=== PATIENT | male | born 1975 | race Caucasian/White ===

== ENCOUNTER 2024-10-09 11:48 | Inpatient (IN) | payer SELFPAY ==
[2024-10-09 12:08] VITALS: BP 153/94; PULSE 60; TEMP 36.5; O2SAT 98
--- NOTE | 2024-10-09 12:41 | PC.NURSE ---
96 hour hold rights read and reviewed with patient. Patient stated I do not need to be here, I will sign whatever paper you need me too but i want to go home. I went to [facility] to get some help for depression not to be placed on a hold. I will never seek help again. This nurse explained the 96 hour hold process to patient. Sulaiman from security present during reading of rights. Patient verbalized understandings and copy of rights given to patient.
--- NOTE | 2024-10-09 12:43 | ECG_ITS ---
[employer] Test Date: 2024-10-09 Pat Name: Shubham Summers Department: Room: Gender: Male [employer] Office Markup Clerk: : [id number] Requested By: Maura Neal Order Number: [id number] Miranda MD: Meera Tirado M.D. Measurements Intervals [place] Rate: 57 P: 17 OR: 174 QRS: -39 QRSD: 178 T: 12 QT: 461 QTc: 452 Interpretive Statements SINUS BRADYCARDIA POSSIBLE LEFT ATRIAL ENLARGEMENT [-0.1mV P-WAVE IN V1/V2] INDETERMINATE AXIS RIGHT BUNDLE BRANCH BLOCK [120+ ms QRS DURATION, UPRIGHT V1, 40+ ms S IN I/aVL/V4/V5/V6] No previous ECG available for comparison Electronically Signed On 10-09-2024 21:19:59 CDT by Meera Tirado M.D. [email or web address]
[2024-10-09 12:51] VITALS: PULSE 57; RESP 18
[2024-10-09 12:57] LABS: Basophils # 0.1 10^3/uL (0.0-0.1); Basophils % 0.8 %; Eosinophils # 0.1 10^3/uL (0.0-0.8); Eosinophils % 1.8 %; Hematocrit 49.4 % (37-53); Lymphocytes # 1.8 10^3/uL (0.8-4.8); Lymphocytes % 28.9 %; Mean Corpuscular Hemoglobin 27.9 pg (27-33); Mean Corpuscular Volume 84.6 fl (82-101); Mean Platelet Volume 10.7 fL (7.4-10.4); Monocytes # 0.4 10^3/uL (0.2-0.9); Monocytes % 6.9 %; Neutrophils # 3.79 10^3/uL (1.8-7.7); Neutrophils % 61.3 %; Nucleated Red Blood Cells % 0 %; Platelet Count 233 10^3/cmm (157-399); Red Blood Count 5.84 10^6/uL (3.85-5.65); Red Cell Distribution Width 13.7 % (12.1-15.1); White Blood Count 6.19 10^3/uL (3.29-11.43)
--- NOTE | 2024-10-09 13:00 | W.ED.PSYCHS ---
HPI - Psych General: Chief Complaint: Psychiatric Symptoms Stated Complaint: DINORAH, 96 Time Seen by Provider: 10/09/24 11:59 History of Present Illness: 49-year-old man who presents the emergency room with police from [facility] with concerns for suicidal thoughts. He has not been on medications and has never sought help before. He says he is been having worsening depression which in turn has had him thinking more about suicide. He says he does not have a plan and is not going to kill himself but he was sent here with an affidavit for a 96-hour hold. He was told he would see a psychiatrist in the emergency room. [facility]. However psychiatrist on-call had not been notified and he recommends the patient be placed into the Neuropsych Unit where he can be evaluated appropriately and possibly started on medications for home and also have follow-up. Related Data Home Medications ?Medication ?Instructions ?Recorded ?Confirmed No Known Home Medications 10/09/24 10/09/24 Review of Systems Narrative: Constitutional symptoms: Negative except as documented in HPI. Skin symptoms: Negative except as documented in HPI. Eye symptoms: Negative except as documented in HPI. ENMT symptoms: Negative except as documented in HPI. Respiratory symptoms: Negative except as documented in HPI. Cardiovascular symptoms: Negative except as documented in HPI. Gastrointestinal symptoms: Negative except as documented in HPI. Genitourinary symptoms: Negative except as documented in HPI. Musculoskeletal symptoms: Negative except as documented in HPI. Neurologic symptoms: Negative except as documented in HPI. Psychiatric symptoms: Negative except as documented in HPI. Endocrine symptoms: Negative except as documented in HPI. Physical Exam Narrative: EXAM NARRATIVE: General: Alert, no acute distress. Skin: Warm, dry. Head: Normocephalic, atraumatic. Neck: Supple, trachea midline. Eye: Extraocular movements are intact. Ears, nose, mouth and throat: mucosa moist. Cardiovascular: Regular, Normal peripheral perfusion. Respiratory: Lungs are clear to auscultation, respirations are non-labored, breath sounds are equal, Symmetrical chest wall expansion. Gastrointestinal: Soft, Nontender, Non distended Musculoskeletal: Normal ROM, no deformity. Neurological: Alert and oriented, No focal neurological deficit observed. Psychiatric: Patient is quite irritated and agitated about the fact that he was told that he was coming here to be evaluated by a psychiatrist and is adamant that he will not be admitted to the Neuropsych Unit. I discussed with him that I do not really have any choice at this point and that likely he will be seen tomorrow and could possibly be sent home after he is evaluated by the psychiatrist but the psychiatrist does not routinely come to the emergency room for evaluations. Ultimately he expresses some understanding of this. Course Vital Signs: Vital signs: Vital Signs Temperature 97.7 F 10/09/24 12:08 Pulse Rate 57 L 10/09/24 12:51 Respiratory Rate 18 10/09/24 12:51 Blood Pressure 153/94 10/09/24 12:08 Pulse Oximetry 98 10/09/24 12:08 Oxygen Delivery Me thod Room Air 10/09/24 12:08 MDM - Psych Medical Decision Making Differential diagnosis: Patient with reported depression and suicidal ideation. concerns for infection, alcohol intoxication, cardiac issues or other medical problems prior to psychiatric admission. Workup: labwork, ekg ordered to evaluate the pathologies and to clear the patient medically prior to psychiatric admission Lab Review: Laboratory results were reviewed and interpreted by myself the emergency room physician. - Medically cleared. - EKG shows no ischemic changes. - Blood alcohol level is negative, -Tylenol and salicylate levels are negative. - Drug screen is negative - No signs of infection, urinalysis clear and white count is not elevated - No anemia. - BUN and creatinine are within normal limits. Consultation: I spoke with Dr. Trinidad who recommends 96-hour hold and placement. Assessment and plan: Depression Suicidal thoughts ?96-hour hold was placed. Behavioral health felt he pose a danger to himself. -Admission to neuropsychiatric unit for continued evaluation and treatment. - All lab work was reviewed and interpreted personally by myself, the ER physician - Evaluation and treatment of this problem were appropriate in the emergency setting Lab Data 10/09/24 12:47 10/09/24 12:47 Laboratory Results WBC 6.19 10^3/uL (3.29-11.43) 10/09/24 12:47 RBC 5.84 10^6/uL (3.85-5.65) H 10/09/24 12:47 Hgb 16.30 g/dL (11.27-16.99) 10/09/24 12:47 Hct 49.4 % (37-53) 10/09/24 12:47 MCV 84.6 fl (82-101) 10/09/24 12:47 MCH 27.9 pg (27-33) 10/09/24 12:47 MCHC 33.0 g/dL (30-55) 10/09/24 12:47 RDW 13.7 % (12.1-15.1) 10/09/24 12:47 Plt Count 233 10^3/cmm (157-399) 10/09/24 12:47 MPV 10.7 fL (7.4-10.4) H 10/09/24 12:47 Neut % (Auto) 61.3 % 10/09/24 12:47 Lymph % (Auto) 28.9 % 10/09/24 12:47 [place] % (Auto) 6.9 % 10/09/24 12:47 Eos % (Auto) 1.8 % 10/09/24 12:47 Baso % (Auto) 0.8 % 10/09/24 12:47 Neut # (Auto) 3.79 10^3/uL (1.8-7.7) 10/09/24 12:47 Lymph # (Auto) 1.8 10^3/uL (0.8-4.8) 10/09/24 12:47 [place] # (Auto) 0.4 10^3/uL (0.2-0.9) 10/09/24 12:47 Eos # (Auto) 0.1 10^3/uL (0.0-0.8) 10/09/24 12:47 Baso # (Auto) 0.1 10^3/uL (0.0-0.1) 10/09/24 12:47 Nucleated RBC % (auto) 0 % 10/09/24 12:47 Nucleated RBCs # 0.0 /100WBC 10/09/24 12:47 Sodium 135 mmol/L (136-145) L 10/09/24 12:47 Potassium 3.5 mmol/L (3.5-5.1) 10/09/24 12:47 Chloride 98 mmol/L (98-107) 10/09/24 12:47 Carbon Dioxide 23 mmol/L (22-29) 10/09/24 12:47 Anion Gap 17.5 (5-19) 10/09/24 12:47 BUN 15 mg/dL (6-20) 10/09/24 12:47 Creatinine 0.8 mg/dL (0.7-1.2) 10/09/24 12:47 GFR Calculation 103.2 mL/min (90-130) 10/09/24 12:47 Glucose 98 mg/dL (65-115) 10/09/24 12:47 Calculated Osmolality 281 mOsm/kg (285-295) L 10/09/24 12:47 Calcium 9.1 mg/dL (8.5-10.5) 10/09/24 12:47 Total Bilirubin 0.6 mg/dL (0.15-1.2) 10/09/24 12:47 AST 31 U/L (0-40) 10/09/24 12:47 ALT 28 U/L (0-41) 10/09/24 12:47 Alkaline Phosphatase 80 U/L (40-130) 10/09/24 12:47 Total Protein 8.0 g/dL (6.6-8.7) 10/09/24 12:47 Albumin 4.7 g/dL (3.5-5.2) 10/09/24 12:47 Globulin 3.3 g/dL (1.3-4.6) 10/09/24 12:47 TSH 1.99 uIU/mL (0.27-4.20) 10/09/24 12:47 Urine Color Yellow (Yellow) 10/09/24 12:37 Urine Appearance Clear (CLEAR) 10/09/24 12:37 Urine pH 6.5 (5-7) 10/09/24 12:37 Ur Specific Funk 1.024 (1.005-1.030) 10/09/24 12:37 Urine Protein Negative (Negative) 10/09/24 12:37 Urine Glucose (UA) Negative (Normal) 10/09/24 12:37 Urine Ketones Negative (Negative) 10/09/24 12:37 Urine Blood Negative (Negative) 10/09/24 12:37 Urine Nitrate Negative (Negative) 10/09/24 12:37 Urine Bilirubin Negative (Negative) 10/09/24 12:37 Urine Urobilinogen 1.0 mg/dL (Negative) 10/09/24 12:37 Ur Leukocyte Esterase Negative (Negative) 10/09/24 12:37 Urine RBC 0-2 /hpf (0-2) 10/09/24 12:37 Urine WBC 0-5 /hpf (0-5) 10/09/24 12:37 Ur Squamous Epith Cells 0-5 /hpf (0-5) 10/09/24 12:37 Amorphous Sediment Not Reportable 10/09/24 12:37 Urine Bacteria None seen /hpf (NONE) 10/09/24 12:37 Hyaline Casts 4.52 /lpf 10/09/24 12:37 Salicylates < 0.3 mg/dL (3-10) L 10/09/24 12:47 Urine Opiates Screen Negative ng/mL (Negative) 10/09/24 12:37 Acetaminophen < 5.0 ug/mL (10-30) L 10/09/24 12:47 Ur Barbiturates Screen Negative ng/mL (Negative) 10/09/24 12:37 Ur Phencyclidine Scrn Negative ng/mL (Negative) 10/09/24 12:37 Ur Amphetamines Screen Negative ng/mL (Negative) 10/09/24 12:37 U Benzodiazepines Scrn Negative ng/mL (Negative) 10/09/24 12:37 Urine Cocaine Screen Negative ng/mL (Negative) 10/09/24 12:37 U Marijuana (THC) Screen Negative ng/mL (Negative) 10/09/24 12:37 Ethyl Alcohol < 10 mg/dL (0-10) 10/09/24 12:47 No radiology studies performed this visit Discharge Plan Discharge Patient Disposition: Admitted As Inpatient Admit Provider: Kal Trinidad Clinical Impression: Suicidal ideation, Depression Condition: Stable Coding Level of Care Code ED Environmental Services Lead for Latasha Posadas
[2024-10-09 13:04] LABS: Bilirubin Urine Negative (Negative); Blood Urine Negative (Negative); Glucose Urine UA Negative (Normal); Ketones Urine Negative (Negative); Leukocyte Esterase Urine Negative (Negative); Nitrate Urine Negative (Negative); Protein Urine Negative (Negative); Specific Gravity, Urine 1.024 (1.005-1.030); Urine Appearance Clear (CLEAR); Urine Color Yellow (Yellow); pH Urine 6.5 (5-7)
[2024-10-09 13:09] LABS: Bacteria Urine None Seen /hpf; Hyaline Casts Urine 4.52 /lpf; RBC Urine 0-2 /hpf (0-2); Squamous Epithelial Cell Urine 0-5 /hpf (0-5); WBC Urine 0-5 /hpf (0-5)
[2024-10-09 13:11] LABS: Add Urine Culture? No; Amphetamines Screen Urine Negative (Negative); Barbiturates Screen Urine Negative (Negative); Benzodiazepines Screen Urine Negative (Negative); Cocaine Screen Urine Negative (Negative); Opiate Screen Urine Negative (Negative); PCP Screen Urine Negative (Negative); THC Screen Urine Negative (Negative)
[2024-10-09 13:22] LABS: Alanine Aminotransferase 28 U/L (0-41); Albumin Level 4.7 g/dL (3.5-5.2); Alkaline Phosphatase 80 U/L (40-130); Anion Gap 17.5 (5-19); Aspartate Amino Transferase 31 U/L (0-40); Blood Urea Nitrogen 15 mg/dL (6-20); Calcium 9.1 mg/dL (8.5-10.5); Carbon Dioxide 23 mmol/L (22-29); Chloride 98 mmol/L (98-107); Globulin 3.3 g/dL (1.3-4.6); Glomerular Filtration Rate 103.2 mL/min (90-130); Glucose 98 mg/dL (65-115); Osmolality Calculated 281 mOsm/kg (285-295); Potassium 3.5 mmol/L (3.5-5.1); Sodium 135 mmol/L (136-145); Thyroid Stimulating Hormone 1.99 uIU/mL (0.27-4.20); Total Bilirubin 0.6 mg/dL (0.15-1.2)
[2024-10-09 13:27] LABS: Acetaminophen < 5.0 ug/mL (10-30); Alcohol Level < 10 mg/dL (0-10); Salicylate < 0.3 mg/dL (3-10)
--- NOTE | 2024-10-09 13:46 | PC.NURSE ---
report called to Gary @[id number], no further questions.
[2024-10-09 14:37] VITALS: BP 118/74; PULSE 82; RESP 18; TEMP 36.6; O2SAT 98
[2024-10-09 20:40] VITALS: BP 162/93; PULSE 77; RESP 18; TEMP 36.6; O2SAT 98
[2024-10-10 06:00] VITALS: BP 149/100; PULSE 78; RESP 18; TEMP 36.6; O2SAT 100
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
[2024-10-10 13:41] VITALS: BP 149/100; PULSE 78; RESP 18; TEMP 36.6; O2SAT 100
[2024-10-10 14:00] VITALS: BP 148/98; PULSE 68; RESP 17; TEMP 37.1; O2SAT 98
--- NOTE | 2024-10-14 13:04 | CSC.QMHP_ITS ---
[facility] Contact Note [facility] Contact Note Client presented to the crisis center to follow up with this justowriter operator regarding current progress pertaining to his mental health. Client reports being place on a 96 hour hold the prior week while attempting to complete his [facility] clinical assessment. Client expressed discontent with the 96 hour hold, noting a desire to maintain outpatient services only. This justowriter operator explained the process of a 96 hour hold and under what circumstances one may be initiated. Client does still express the desire to attend out-patient therapy with this justowriter operator providing support and encouragement. This justowriter operator reminding client of the upcoming appointment with the client being agreeable to attend. Shubham notes no changes in his mental health, continuing to endorse feelings of hopelessness. Client states these thoughts typically occur at night, noting he will wake up in the middle of the night with severe anxiety. Client does not recall any dream/nightmares but notes he is frequently unable to recall his dreams. Client reports taking a drive to clear his head when this had occurred the prior night, reporting this had helped significantly. Client also reports he has been in contact with his Cousin, whom has provided emotional support in the past. Client does express a desire to continue engaging with services at the crisis center until traditional therapy has been established. This justowriter operator assessed client for safety, completing new safety plan. Client does endorse instances of hopelessness but states he does not have a plan, nor intent to harm himself.
== END 2024-10-10 14:45 | disposition home or self-care (01) | DRG 885 ==
LOC: ER 13:00 → NP 13:30
PROVIDERS: Admitting Provider Psychiatry & Neurology Psychiatry; Emergency Provider Emergency Medicine; Visit Provider Psychiatry & Neurology Psychiatry
DX: F33.2 Major depressive disorder, recurrent severe without psychotic features (principal); R45.851 Suicidal ideations; F40.10 Social phobia, unspecified; Z59.89 Other problems related to housing and economic circumstances; Z59.41 Food insecurity
CPT/HCPCS: 80053; 80306; 80307; 81001; 84443; 85025; 93005; 97150; 97165; 99285

== ENCOUNTER → 2024-10-23 09:08 | Outpatient (BNVA) | payer OTHER, SELFPAY | PROVIDERS: Visit Provider Psychiatry & Neurology Psychiatry | DX: F40.10 Social phobia, unspecified (principal); F33.2 Major depressive disorder, recurrent severe without psychotic features | CPT/HCPCS: 80061; 83036 ==